=== PATIENT | male | born 1975 | race Caucasian/White ===

== ENCOUNTER 2018-12-23 19:46 | Observation (INO) | payer BC ==
[~2018-12-23] VITALS: Ht 182.9 cm; Wt 97.3 kg
[2018-12-23 20:22] VITALS: BP 150/80
[2018-12-23] MEDS ORDERED: PANT40TA5 PO (20:45)
[2018-12-23] MEDS ORDERED: MULT1TAB52 PO (20:47)
[2018-12-23] MEDS ORDERED: CALC-98 PO (20:49)
[2018-12-23] MEDS ORDERED: ONDANSETRON ODT 4 MG TAB.RAPDIS PO PRN (21:15)
[2018-12-23 21:38] LABS: BASO % 0 % (0-3); EOS # 0.1 x10^3/uL (0.0-0.7); EOS % 1 % (0-3); HEMATOCRIT 47.4 % (39.0-53.0); HEMOGLOBIN 15.7 g/dL (13.0-17.5); LYMPH # 2.4 x10^3/uL (1.0-4.8); LYMPH % 41 % (24-48); MEAN CORPUSCULAR HEMOGLOBIN 29 pg (25-35); MEAN CORPUSCULAR HGB CONC 33 g/dL (31-37); MEAN CORPUSCULAR VOLUME 88 fL (79-100); MONO # 0.4 x10^3/uL (0.0-1.1); MONO % 6 % (0-9); NEUT % 51 % (31-73); PLATELET COUNT 190 x10^3/uL (140-400); RED BLOOD COUNT 5.41 x10^6/uL (4.30-5.70); RED CELL DISTRIBUTION WIDTH 13.5 % (11.5-14.5); WHITE BLOOD COUNT 5.8 x10^3/uL (4.0-11.0)
[2018-12-23 21:50] LABS: ALBUMIN/GLOBULIN RATIO 1.2 (1.0-1.7); CALCIUM 9.2 mg/dL (8.5-10.1); CREATININE 0.9 mg/dL (0.7-1.3); GFR 91.3; POTASSIUM 3.8 mmol/L (3.5-5.1); TOTAL BILIRUBIN 0.8 mg/dL (0.2-1.0); TOTAL PROTEIN 7.4 g/dL (6.4-8.2)
[2018-12-23] MEDS: IV DEXTROSE 5% - 0.9 % NACL 1,000 ML IV SCH (22:10)
[2018-12-23] MEDS: MORPHINE SULFATE 4 MG/ML DISP.SYRIN. IV PRN (22:12)
[2018-12-23] MEDS: FAMOTIDINE 20 MG/2 ML VIAL IVP SCH (22:13)
[2018-12-23 23:07] VITALS: BP 113/70
[2018-12-24] MEDS: MORPHINE SULFATE 4 MG/ML DISP.SYRIN. IV PRN ×9 (00:22→19:13)
[2018-12-24 02:31] LABS: BILIRUBIN,URINE NEG (NEG); CLARITY,URINE CLEAR; COLOR,URINE YELLOW; GLUCOSE,URINE NEG (NEG); NITRITE,URINE NEG (NEG); UROBILINOGEN,URINE 1 mg/dL (0.2 mg/dL)
[2018-12-24 02:32] LABS: BACTERIA,URINE 0 /HPF (0-FEW); RBC,URINE 0 /HPF (0-2); SQUAMOUS EPITHELIAL CELL,UR OCC /LPF; WBC,URINE 0 /HPF (0-4)
[2018-12-24 06:05] VITALS: BP 111/66
[2018-12-24 06:27] LABS: BASO % 0 % (0-3); EOS # 0.1 x10^3/uL (0.0-0.7); EOS % 2 % (0-3); HEMATOCRIT 40.9 % (39.0-53.0); HEMOGLOBIN 13.5 g/dL (13.0-17.5); LYMPH # 2.8 x10^3/uL (1.0-4.8); LYMPH % 54 % (24-48); MEAN CORPUSCULAR HEMOGLOBIN 29 pg (25-35); MEAN CORPUSCULAR HGB CONC 33 g/dL (31-37); MEAN CORPUSCULAR VOLUME 88 fL (79-100); MONO # 0.5 x10^3/uL (0.0-1.1); MONO % 9 % (0-9); NEUT # 1.8 x10^3uL (1.8-7.7); NEUT % 35 % (31-73); PLATELET COUNT 169 x10^3/uL (140-400); RED BLOOD COUNT 4.67 x10^6/uL (4.30-5.70); RED CELL DISTRIBUTION WIDTH 13.6 % (11.5-14.5); WHITE BLOOD COUNT 5.2 x10^3/uL (4.0-11.0)
[2018-12-24] MEDS: IV DEXTROSE 5% - 0.9 % NACL 1,000 ML IV SCH ×2 (07:00→17:20)
[2018-12-24] MEDS: FAMOTIDINE 20 MG/2 ML VIAL IVP SCH (08:07)
[2018-12-24] MEDS: metroNIDAZOLE 500 MG TABLET PO SCH ×2 (09:24→13:49)
[2018-12-24] MEDS: MESALAMINE ER 250 MG CAPSULE.ER PO SCH ×3 (09:25→17:21)
[2018-12-24 12:03] VITALS: BP 118/74
[2018-12-24 15:57] VITALS: BP 126/65
--- NOTE | 2018-12-24 16:22 | RAD ---
Acute abdomen series with chest, 3 views, 12/24/2018: HISTORY: Abdominal pain The abdominal gas pattern is unremarkable. No free air is seen in the abdomen. Right upper quadrant surgical clips suggest a previous cholecystectomy. Tiny radiopacities projected over the midabdomen were shown to be related to the anterior abdominal wall at the umbilical level on yesterday's CT study. There is no evidence of organomegaly. The heart size is normal. The lungs are clear. IMPRESSION: No acute abdominal abnormality is detected. Electronically signed by: John Bernal MD (12/24/2018 4:19 PM) [facility]
[2018-12-24 20:15] VITALS: BP 116/77
--- NOTE | 2018-12-24 20:18 | PN ---
DATE: 12/24/2018 SUBJECTIVE: The patient is a 43-year-old male in with severe right upper quadrant pain. The patient has severe pain requiring IV pain medication as he has failed outpatient oral medication. The patient's CAT scan does not show anything presently, although he had a previous CAT scan that did show colitis in that right ascending area, so the idea is probably he has had a recurrence of such. In any case, the patient is receiving IV fluids, put on Flagyl and mesalamine as well as pain medication. PHYSICAL EXAMINATION: VITAL SIGNS: Blood pressure 110/60, respiratory rate , pulse 50, afebrile. GENERAL: The patient is alert and oriented. LUNGS: Diminished, but clear. CARDIOVASCULAR: Regular sinus rhythm. ABDOMEN: Soft, but extremely tender and guarding in the right upper quadrant area. No rebounding or guarding is noted. No hepatosplenomegaly. No masses noted. IMPRESSION: Colitis of the colon. PLAN: Continue to monitor the patient, accordingly make further evaluation on him as indicated with the adjustment of medication. GERSON DYER MD DR: DAVID/taylor JOB#: [id number] / [id number]
== END 2018-12-24 20:40 | disposition short-term general hospital (02) ==
LOC: 1 SOUTH 19:46 → INTOOBSV 19:46
PROVIDERS: ADMIT Family Medicine; ATTEND Family Medicine
DX: K52.9 Noninfective gastroenteritis and colitis, unspecified (principal); M47.896 Other spondylosis, lumbar region
CPT/HCPCS: 36415; 74022; 74160; 80053; 81001; 82150; 82550; 82977; 83605; 83690; 84484; 85025; 96361; 96374; 96375; 96376; G0378; G0379; J2270; J3490; J7042; Q9967

== ENCOUNTER → 2018-12-23 | Outpatient (CLI) | payer BC ==
[~2018-12-23] MED LIST: CALC-98 PO; IOHEXOL 300 MG/ML 75 ML VIAL. IV ONE; MULT1TAB52 PO; PANT40TA5 PO
[2018-12-23 18:25] LABS: BASO % 1 % (0-3); EOS % 1 % (0-3); HEMATOCRIT 46.7 % (39.0-53.0); HEMOGLOBIN 15.5 g/dL (13.0-17.5); LYMPH # 2.3 x10^3/uL (1.0-4.8); LYMPH % 34 % (24-48); MEAN CORPUSCULAR HEMOGLOBIN 29 pg (25-35); MEAN CORPUSCULAR HGB CONC 33 g/dL (31-37); MEAN CORPUSCULAR VOLUME 88 fL (79-100); MONO # 0.5 x10^3/uL (0.0-1.1); MONO % 7 % (0-9); NEUT # 3.9 x10^3uL (1.8-7.7); NEUT % 58 % (31-73); PLATELET COUNT 197 x10^3/uL (140-400); RED BLOOD COUNT 5.32 x10^6/uL (4.30-5.70); RED CELL DISTRIBUTION WIDTH 13.5 % (11.5-14.5); WHITE BLOOD COUNT 6.8 x10^3/uL (4.0-11.0)
[2018-12-23 18:40] LABS: ALBUMIN 4.1 g/dL (3.4-5.0); ALBUMIN/GLOBULIN RATIO 1.2 (1.0-1.7); CALCIUM 9.5 mg/dL (8.5-10.1); GFR 80.8; POTASSIUM 4.4 mmol/L (3.5-5.1); TOTAL BILIRUBIN 0.7 mg/dL (0.2-1.0); TOTAL PROTEIN 7.6 g/dL (6.4-8.2)
--- NOTE | 2018-12-23 19:03 | RAD ---
CT scan of the abdomen with contrast 12/23/2018 CLINICAL HISTORY: Severe epigastric pain since this morning. TECHNIQUE: After the intravenous administration of 75 cc of Omnipaque 300, contiguous, 5 mm axial sections were obtained through the abdomen. One or more of the following individualized dose reduction techniques were utilized for this study: 1. Automated exposure control. 2. Adjustment of the mA and/or kV according to patient size. 3. Use of iterative reconstruction technique. FINDINGS: Comparison study is dated the 2015. Images through the lung bases are within normal limits. The liver parenchyma has a decreased attenuation consistent with fatty infiltration. The spleen, pancreas, adrenal glands and left kidney are within normal limits. A 1 cm rounded low-attenuation lesion is seen involvigng the superior pole of the right kidney. It likely represents a cyst. A 1 mm nonobstructing calculus is seen involving the midpole of the right kidney. The abdominal aorta tapers normally. Surgical clips are seen within the gallbladder fossa consistent with a cholecystectomy. Postsurgical changes are seen involving the stomach. There is no evidence of bowel obstruction. No free fluid or free air is seen within the abdomen. There is no evidence of bowel obstruction. The appendix is not included on this study. Very mild S-shaped curvature of the thoracolumbar spine is seen. Degenerative changes are seen involving the mid and lower lumbar spine. IMPRESSION: No acute abnormality is seen. Electronically signed by: Roel Balderas MD (12/23/2018 7:00 PM) [facility]
[2018-12-23 20:15] VITALS: BP 150/80
== END | disposition home or self-care (01) ==
LOC: CT 17:11 → UNDOADMIN 19:25 → 1 SOUTH 19:25
PROVIDERS: ATTEND Family Medicine
DX: K76.0 Fatty (change of) liver, not elsewhere classified (principal); N28.89 Other specified disorders of kidney and ureter; M47.896 Other spondylosis, lumbar region; M43.8X5 Other specified deforming dorsopathies, thoracolumbar region; Z90.49 Acquired absence of other specified parts of digestive tract; Z98.890 Other specified postprocedural states
CPT/HCPCS: 36415; 74160; 80053; 82150; 82977; 83690; 85025; Q9967